=== PATIENT | female | born 1945 | race Caucasian/White ===

== ENCOUNTER → 2016-05-16 | Outpatient (CLI) | payer MEDICARE, OTHER ==
[~2016-05-16] MED LIST: AZELASTINE HCL6 ML OU; CENTRUM SILVER1 EAC4 PO; CLARITIN DPS10 MG PO; COLACE-DPS100 MG PO; COZAAR100 MG PO; FLEXERIL DPS5 MG PO; LIPITOR DPS10 MG PO; LUMIGAN 0.01%2.5 ML OU; PERCOCET 5 DPS1 TAB PO; PRILOSEC DPS20 MG PO; RESTASIS1 EACH OU; SPIRONOLACT50 MG PO; TIMOPTIC 0.5% DP5 ML OU; TYLENOL EXTRA500 M1 PO
== END | disposition home or self-care (01) ==
LOC: RAD.S 03-10 10:36
DX: N60.91 Unspecified benign mammary dysplasia of right breast (principal); Z98.890 Other specified postprocedural states